=== PATIENT | male | born 1935 | race Caucasian/White ===

== ENCOUNTER → 2016-12-10 | Outpatient (CLI) | payer MEDICARE, BC ==
[~2016-12-10] MED LIST: CENTRUM PO; COUMADIN PO; COUMADIN5 MG PO; FLAGYL PO; FLOMAX0.4 M1 PO; HYZAAR 50-12.51 TAB PO; IBUPROFEN PO; KRILL OIL500 MG PO; LIPITOR40 MG PO; LISINOPRIL PO; LISINOPRIL-HCTZ1 T14 PO; NORVASC PO; SULAR PO; WALGREENS PHARMACY; ZESTORETIC 20-1 EAC1 PO
--- NOTE | ~2016-12-10 | CT98 ---
[facility] A Service of [facility] & [facility] & [facility] RADIOLOGY TEXT RESULTS PATIENT: BERNARDO CROWELL LOCATION: [facility] : 37 UNIT #: [id number] AGE: [address]: Nic Eli MD SEX: M ORDER DR: [id number] [place] [id number] O MR#: [id number] Acc #: [id number] NAME: BERNARDO CROWELL : 1935 SEX: M STUDY DATE/TIME: 12/10/2016 8:53 UNIT: [facility] ROOM: STUDY DESCRIPTION: CT Lumbar Spine Wo Cont Attending Physician: Nic Eli M.D. Referring Physician: Nic Eli M.D. Ordering Physician: Nic Eli M.D. Primary Care Physician: Nic Eli M.D. MEDICAL IMAGING REPORT This report is preliminary unless electronic signature is present. EXAM Lumbar spine CT no contrast date of study 12/10/[address] abdomen and pelvis 11/12/2015 and 01/15/2010 PROCEDURE Axial lumbar spine CT without contrast with multiplanar reformats. This CT exam was performed with one or more of the following radiation dose reduction techniques: automatic exposure control, adjustment of mA and/or kV according to patient size, and iterative reconstruction. HISTORY Low back pain and bruising since fall on 12/04/2016. FINDINGS There is a mild lower lumbar levoscoliosis, there is a grade 1 anterolisthesis at L4-5 without pars defect. The paraspinous soft tissues are unremarkable. There is no fracture or bone erosion or destruction at any level. At 12-1 disc and endplate change cause borderline to mild canal narrowing without foraminal stenosis. At 1-2 again there is disc and endplate change with borderline if any canal narrowing and no foraminal stenosis. At 2-3, again disc and endplate change and facet arthropathy are seen without substantial canal narrowing and borderline left and no right foraminal narrowing. At 3-4, disc and endplate change and facet arthropathy cause mild or STS. [facility] A Service of [facility] & [facility] & [facility] RADIOLOGY TEXT RESULTS PATIENT: BERNARDO CROWELL LOCATION: [facility] : 37 UNIT #: [id number] AGE: [address]: Nic Eli MD SEX: M ORDER DR: [id number] canal stenosis, and mild or [id number] right and left foraminal stenosis. At 4-5, anterolisthesis disc and endplate change and facet arthropathy cause severe canal stenosis and moderate left and moderate to severe right foraminal stenosis. At 5-1, there is no canal stenosis but there is moderate to severe bony right foraminal narrowing and no left foraminal narrowing. IMPRESSION No fracture or acute abnormality though there is a degenerative grade 1 anterolisthesis at L4-5 with severe canal stenosis. See above for level by level details. Dictated by... Ravi Diaz M.D. THIS IS AN ELECTRONICALLY VERIFIED REPORT Ravi Diaz M.D. at 12/13/2016 2:20 PM ANDREA/navdeep TD: 12/10/2016 12:48 JOB #: [id number] MEDICAL IMAGING REPORT Page 1 of 1
== END | disposition home or self-care (01) ==
LOC: SCT 08:41 → CCAT 09:30
DX: M54.5 Low back pain (principal); M48.06 Spinal stenosis, lumbar region; M43.16 Spondylolisthesis, lumbar region; M41.9 Scoliosis, unspecified; M12.88 Other specific arthropathies, not elsewhere classified, other specified site
CPT/HCPCS: 72131